=== PATIENT | male | born 1950 | race Caucasian/White ===

== ENCOUNTER 2017-11-19 07:11 | Emergency (ER) | payer OTHER ==
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
[2017-11-19 07:32] VITALS: RESP 18; TEMP 98.4
[2017-11-19 07:39] VITALS: O2SAT 100
[2017-11-19] MEDS ORDERED: Iodixanol 320 MG/ML 100 ML BOTTLE IV ONE (07:55)
[2017-11-19] MEDS ORDERED: Bacitracin 500 Units/gm Oint Foilpak UD ONE (07:59)
[2017-11-19] MEDS ORDERED: Bacitracin Ointment 30 GM TUBE TOP STA (08:06)
[2017-11-19 08:18] LABS: BASO % 0.5 % (0.0-2.0); EOS # 0.4 K/uL (0.0-0.7); EOS % 7.7 % (0.0-4.0); HEMOGLOBIN 8.8 g/dL (12.0-18.0); LYMPH # 1.4 K/uL (1.0-4.3); LYMPH % 24.8 % (20.0-40.0); MEAN CELL VOLUME 72.4 fL (80.0-94.0); MEAN CORPUSCULAR HEMOGLOBIN 22.8 pg (27.0-31.0); MEAN CORPUSCULAR HGB CONC 31.5 g/dL (33.0-37.0); MEAN PLATELET VOLUME 9.2 fL (7.2-11.7); MONO # 0.6 K/uL (0.0-0.8); MONO % 10.7 % (0.0-10.0); NEUT # 3.2 K/uL (1.8-7.0); NEUT % 56.3 % (50.0-75.0); NRBC % 0.1 % (0.0-2.0); RBC 3.85 Mil/uL (4.40-5.90); RED CELL DISTRIBUTION WIDTH 17.9 % (11.5-14.5); WHITE BLOOD COUNT 5.7 K/uL (4.8-10.8)
[2017-11-19 08:33] LABS: BLOOD UREA NITROGEN 17 mg/dL (9-20); CALCIUM 8.6 mg/dl (8.6-10.4); GFR AFRICAN-AMERICAN > 60; GFR NON-AFRICAN AMERICAN 55
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
[2017-11-19 10:46] VITALS: BP 149/80; PULSE 77
== END 2017-11-19 11:40 | disposition home or self-care (01) ==
LOC: C.ER 07:11
DX: S90.31XA Contusion of right foot, initial encounter (principal); V03.10XA Pedestrian on foot injured in collision with car, pick-up truck or van in traffic accident, initial encounter
CPT/HCPCS: 71260; 74177; 80048; 85025; 96374; 99285; J1885; Q9967